=== PATIENT | male | born 1950 | race Caucasian/White ===

== ENCOUNTER 2022-10-20 14:30 | Outpatient (CLI) | payer MEDICARE, SELFPAY | END 2022-10-20 14:31 | disposition home or self-care (01) | LOC: LKVREF 14:31 | PROVIDERS: Visit Provider Emergency Medicine | DX: R06.09 Other forms of dyspnea (principal); I48.92 Unspecified atrial flutter | CPT/HCPCS: 80076 ==

== ENCOUNTER 2022-10-29 10:43 | Outpatient (CLI) | payer MEDICARE, SELFPAY | END 2022-10-29 10:44 | disposition home or self-care (01) | LOC: RAD 10:45 | PROVIDERS: PCP Emergency Medicine; Visit Provider Emergency Medicine | DX: I48.92 Unspecified atrial flutter (principal); I51.7 Cardiomegaly; I35.1 Nonrheumatic aortic (valve) insufficiency | CPT/HCPCS: 93306 ==

== ENCOUNTER 2023-01-18 07:45 | Outpatient (CLI) | payer MEDICARE, SELFPAY ==
--- NOTE | 2023-01-18 08:00 | CRLHL7_ITS ---
For Patients: As a result of the Century Cures Act, medical imaging exams and procedure reports are released immediately into your electronic medical record. You may view this report before your referring provider. If you have questions, please contact your health care provider. MYOCARDIAL PERFUSION SCAN - [facility] - [facility] CLINICAL HISTORY: 72-year-old male. Atrial fibrillation. Aortic stenosis. Decreased exertional capacity. Cardiomyopathy. Height 5 feet, 10 inches, weight 192 pounds. TECHNIQUE: (Resting SPECT and stress gated SPECT with wall motion and ejection fraction) Stress: Pharmacologic - Regadenoson (0.4 mg) (IV) (Walking Protocol) Dose (Stress/Rest): 32.6 mCi/8.64 mCi Tc-99m Sestamibi (IV) Comparison: None FINDINGS: There is good uptake of activity by the left ventricle. There is severe left ventricular enlargement. End-diastolic volume 291 mL. End-systolic volume 167 mL. There is mild apical thinning. No other significant fixed or reversible defects are identified. The gated images demonstrate an abnormally low left ventricular ejection fraction of 40 percent. [id number] global hypokinesis. IMPRESSION: 1. No evidence of significant myocardial ischemia or infarction. 2. Abnormally low left ventricular ejection fraction of 40 percent. 3. These findings should reflect a nonischemic cardiomyopathy. This study was jointly reviewed by radiology and cardiology. DENISSE LEO M.D. Diagnostic/Nuclear Medicine Radiologist [email or web address] BARTOLOME/[email or web address] / GAVI KIM M.D. [facility] be/Dictated by: Denisse Leo MD @ 01/18/2023 2:03:00 PM (Electronically Signed)
[2023-01-18] MEDS: REGADENOSON 0.4 MG/5 ML SYRINGE IVP (09:15)
[2023-01-18] MEDS: SODIUM CHLORIDE 0.9 % (FLUSH) 10 ML SYRINGE IVF (09:15)
[2023-01-18 09:26] VITALS: BP 150/79; PULSE 78; RESP 18
--- NOTE | 2023-01-18 11:58 | W.PM.STED ---
Stress Test Note Date Date of test: 01/18/23 Providers Primary care provider: Lizbeth Granda Stress test physician: Sea Oscar Stress Test Note Stress test ordered: Lexiscan Indication for test: Afib, aortic stenosis, shortness of breath Stress test medicine: Lexiscan Results discussion: Patient is a very nice gentleman who presents the above test after review of the cardiac stress test medical history form, patient understands the risks benefits and side effects, and voices understanding. Pretest EKG shows normal sinus rhythm, with the atrial fibrillation controlled rate at 74, with a blood pressure 154/76, following normal Lexiscan protocol, patient is the exercised for 5 minute. , no complications were seen. He did have a a successful infusion of Lexiscan, with minimal symptoms. No chest pain no shortness of breath, recovered normally, maximum heart rate was 145. No acute dysrhythmias. Normal recover Impression: Negative electrographic portion of Lexiscan, successfully administered Follow up suggested: Patient will be discharged home, he is back to baseline, review of the nuclear portion will be done by nuclear Medicine, clinical correlation with ordering physician will need to be done. Patient is discharged back at baseline
== END 2023-01-18 10:10 | disposition home or self-care (01) ==
LOC: STRESS 07:46
PROVIDERS: PCP Emergency Medicine; Visit Provider Family Medicine
DX: I35.0 Nonrheumatic aortic (valve) stenosis (principal); I48.92 Unspecified atrial flutter
CPT/HCPCS: 78452; 93016; 93017; A9500; J2785

== ENCOUNTER 2023-07-27 09:47 | Outpatient (CLI) | payer MEDICARE, SELFPAY | END 2023-07-27 09:48 | disposition home or self-care (01) | PROVIDERS: PCP Physician Assistant Medical; Visit Provider Physician Assistant Medical | DX: I10 Essential (primary) hypertension (principal); Z79.01 Long term (current) use of anticoagulants; Z12.5 Encounter for screening for malignant neoplasm of prostate; Z13.29 Encounter for screening for other suspected endocrine disorder; Z13.6 Encounter for screening for cardiovascular disorders | CPT/HCPCS: 80053; 80061; 84443; G0103 ==

== ENCOUNTER 2024-07-02 08:42 | Outpatient (CLI) | payer MEDICARE, SELFPAY | END 2024-07-02 08:43 | disposition home or self-care (01) | LOC: NFLDREF 07-04 08:38 | PROVIDERS: PCP Physician Assistant Medical; Referring Provider Physician Assistant Medical; Visit Provider Family Medicine | DX: Z79.01 Long term (current) use of anticoagulants (principal); R01.1 Cardiac murmur, unspecified | CPT/HCPCS: 85610 ==

== ENCOUNTER 2024-07-23 08:45 | Outpatient (CLI) | payer MEDICARE, SELFPAY | END 2024-07-23 08:46 | disposition home or self-care (01) | LOC: NFLDREF 07-24 11:39 | PROVIDERS: PCP Physician Assistant Medical; Referring Provider Physician Assistant Medical; Visit Provider Physician Assistant Medical | DX: Z51.81 Encounter for therapeutic drug level monitoring (principal); Z79.01 Long term (current) use of anticoagulants | CPT/HCPCS: 85610 ==